=== PATIENT | male | born 1935 | race Caucasian/White ===

== ENCOUNTER 2020-09-10 10:22 | Emergency (ER) | payer MEDICARE, OTHER ==
[~2020-09-10] VITALS: Ht 170.2 cm; Wt 68.0 kg
--- OUTSIDE RECORDS SUMMARY | 2020-09-10 10:26 | XMS ---
PreManage Notification: MARIA TERESA SERRANO Security [employer] Events No recent Security Events currently on file CRITERIA MET - History of Sepsis Dx CARE PROVIDERS There are no care providers on record at this time. Rosi has no Care Guidelines for this patient. Rakesh VISIT COUNT (12 MO.) 1 KYLER Garibay TOTAL 1 NOTE: Visits indicate total known visits. ED/C VISIT TRACKING (12 MO.) 09/10/2020 10:24 KYLER [facility] OR TYPE: Emergency COMPLAINT: - FEVER,SHORTNESS OF BREATH INPATIENT VISIT TRACKING (12 MO.) No inpatient visits to display in this time frame [email or web address]
[2020-09-10] MEDS ORDERED: LOVASTATIN20 MG PO (10:41)
[2020-09-10] MEDS ORDERED: LISINOPRIL20 MG PO (10:41)
== END 2020-09-10 12:48 | disposition home or self-care (01) ==
LOC: ED 10:22
DX: R50.9 Fever, unspecified (principal); Z79.899 Other long term (current) drug therapy; Z85.46 Personal history of malignant neoplasm of prostate
CPT/HCPCS: 71045; 80053; 81001; 85025; 99284-25